=== PATIENT | female | born 1985 ===

== ENCOUNTER 2018-05-04 08:42 | Emergency (ER) | payer SELFPAY ==
[2018-05-04 09:00] VITALS: RESP 18; TEMP 97.6; O2SAT 99; BMI 25.7
[2018-05-04] MEDS ORDERED: POLYETHYLENE GLYCOL 3350 17 GM/Dose PACKET PO STA (09:51)
--- NOTE | 2018-05-04 10:03 | ED PDOC ---
HPI: Abdomen Time Seen by Provider: 05/04/18 09:09 Chief Complaint (Nursing): GI Problem Chief Complaint (Provider): Constipation and abdominal pain History Per: Patient History/Exam Limitations: no limitations Onset/Duration Of Symptoms: Days (x4) Current Symptoms Are (Timing): Still Present Location Of Pain/Discomfort: Other (lower) Associated Symptoms: Constipation. denies: Fever, Chills, Nausea, Vomiting, Diarrhea, Chest Pain, Urinary Symptoms Additional Complaint(s): Heather Real is a 32 year old female, with no significant past medical history, who presents to the emergency department complaining of constipation ongoing for x4 days associated with an intermittent lower abdominal pain. Patient is x24 weeks . Patient reports being able to make bowel movements but only in small amounts. She denies any vaginal bleeding, urinary symptoms, nausea, vomit, chest pain, shortness of breath, weakness, numbness, tingling or other medical complaints. PMD: Butch Hernandez Abnormal Vaginal Bleeding: No Past Medical History Reviewed: Historical Data, Nursing Documentation, Vital Signs Vital Signs: Last Vital Signs Temp 97.6 F 05/04/18 08:59 Pulse 88 05/04/18 08:59 Resp 18 05/04/18 08:59 BP 110/64 05/04/18 08:59 Pulse Ox 99 05/04/18 08:59 - Medical History PMH: No Chronic Diseases - Surgical History Surgical History: No Surg Hx - Family History Family History: States: Unknown Family Hx - Social History Current smoker - smoking cessation education provided: No Alcohol: None Drugs: Denies - Home Medications Home Medications: Ambulatory Orders Medication Instructions Recorded Cephalexin [Keflex] 500 mg PO BID #14 capsule 01/25/18 Polyethylene Glycol 3350 [Miralax] 17 gm PO DAILY PRN 5 Days ml 05/04/18 - Allergies Allergies/Adverse Reactions: Allergies Allergy/AdvReac Type Severity Reaction Status Date / Time No Known Allergies Allergy Verified 02/27/18 07:54 Review of Systems ROS Statement: Except As Marked, All Systems Reviewed And Found Negative Cardiovascular: Negative for: Chest Pain Respiratory: Negative for: Shortness of Breath Gastrointestinal: Positive for: Abdominal Pain, Constipation. Negative for: Nausea, Vomiting, Diarrhea Genitourinary Female: Negative for: Dysuria, Frequency, Incontinence, Vaginal Bleeding Neurological: Negative for: Weakness, Numbness (tingling) Physical Exam - Reviewed Nursing Documentation Reviewed: Yes Vital Signs Reviewed: Yes - Physical Exam Appears: Positive for: No Acute Distress Head Exam: Positive for: ATRAUMATIC, NORMAL INSPECTION, NORMOCEPHALIC Skin: Positive for: Normal Color, Warm, Dry Eye Exam: Positive for: Normal appearance, EOMI, PERRL Neck: Positive for: Normal, Painless ROM Cardiovascular/Chest: Positive for: Regular Rate, Rhythm. Negative for: Murmur Respiratory: Positive for: Normal Breath Sounds. Negative for: Respiratory Distress Gastrointestinal/Abdominal: Positive for: Normal Exam, Soft, Other (gravid abdomen). Negative for: Tenderness, Guarding, Rebound Back: Positive for: Normal Inspection. Negative for: L CVA Tenderness, R CVA Tenderness, Vertebral Tenderness Extremity: Positive for: Normal ROM (upper and lower extremities). Negative for: Deformity Neurologic/Psych: Positive for: Alert, Oriented. Negative for: Motor/Sensory Deficits - ECG O2 Sat by Pulse Oximetry: 99 (RA) Pulse Ox Interpretation: Normal Medical Decision Making Medical Decision Making: Time: 09:09 Initial impression: Constipation, Pelvic pain Initial Plan: --Miralax 17gm PO --Reevaluation 09:35 -Spoke with OB who recommends to give Miralax and sent her [facility] floor for further evaluation. Scribe Attestation: Documented by Brayden Michaels, acting as a scribe for Elpidio Perez MD Provider Scribe Attestation: All medical record entries made by the Scribe were at my direction and personally dictated by me. I have reviewed the chart and agree that the record accurately reflects my personal performance of the history, physical exam, medical decision making, and the department course for this patient. I have also personally directed, reviewed, and agree with the discharge instructions and disposition. Disposition - Clinical Impression Clinical Impression: Pelvic pain, Constipation - Disposition Referrals: Butch Hernandez MD [Primary Care Provider] - Disposition Time: 10:05 Condition: STABLE Additional Instructions: Go to the obgyn floor for further monitoring without fail. Prescriptions: Polyethylene Glycol 3350 [Miralax] 17 gm PO DAILY PRN 5 Days ml PRN Reason: Constipation Instructions: Constipation in Adults
[2018-05-04 17:17] VITALS: BP 110/59; PULSE 75
== END 2018-05-04 12:00 | disposition home or self-care (01) ==
LOC: H.ER 08:42 → H.EROB2 08:42 → SUPCPDRO 08:42 → H.ER 10:45 → H.EROB2 12:00
DX: O26.92 Pregnancy related conditions, unspecified, second trimester (principal); R10.2 Pelvic and perineal pain; K59.00 Constipation, unspecified; Z3A.24 24 weeks gestation of pregnancy

== ENCOUNTER 2018-08-09 12:12 | Emergency (ER) | payer SELFPAY ==
[2018-07-23 10:12] VITALS: BMI 25.7
[2018-08-09 19:48] VITALS: BP 116/74; PULSE 89
--- NOTE | 2018-08-10 09:09 | OBHP ---
Datetime: 08/09/2018 12:00 IP Adm Impression: Term, intrauterine IP Chief Complaint Other: prolonged monitoring from [facility] IP Admit Plan: Observation/Evaluation Admit Comment, IP Provider: 33 y/o female at 38.1 wk GA sent to [facility] from [facility] for prolonged NST monitoring after BPP showed sinusoidal pattern. Patient denies VB, VL, and endorses movement. Has no complaints at this time OB: [facility], Dr. Hernandez Pmhx: denies HomeRx: vitamins Allergies: NKDA SocialHx: denies toxic habits SurgHx: denies FamHx: denies ROS: all systems reviewed and negative except per HPI Physical Exam: Gen: no acute distress Heart: S1S2 present, RRR Lungs: normal breathing pattern, clear to auscultation bilaterally Abd: Gravid, normal bowel sounds, soft, non-tender Extremities: no swelling, tenderness, erythema Assessment and Plan 33 y/o female at 38.1 wk IUP w/ sinusoidal pattern on BPP Prolonged NST, [place] monitoring 2:36PM: patient monitored for 2+ hours: NST reactive, shows moderate variability. No decels. Patient stable for discharge to home w/ instructions to follow up w/ OB ER precautions given Case discussed w/ attending, Dr. Priti Brown, pgyi Extremities - PN: Normal Abdomen - PN: Normal Back - PN: Not Done Breast - PN: Not Done Lungs - PN: Normal Heart - PN: Normal Thyroid - PN: Not Done Neurologic - PN: Not Done HEENT - PN: Not Done General - PN: Normal FHR - Baseline A Provider: 140 Contraction Comments Provider: occasional Gestation - Est Wks by US: 38.1 IP Hx Assessment: The History has been Reviewed and is Current EGA AdmitDate IP: 38.1 Vital Signs Provider: Reviewed IP Chief Complaint: Other NICHD Variability Prov Fetus A: Moderate 6-25bpm NICHD Decel Fetus A IP Provider: None Genitourinary Exam: Normal DTRs - PN: Not Done
== END 2018-08-09 15:30 | disposition home or self-care (01) ==
LOC: H.EROB 12:12 → H.EROB2 12:12 → H.L&D 12:13 → H.EROB2 15:30 → H.L&D 15:30
DX: O76 Abnormality in fetal heart rate and rhythm complicating labor and delivery (principal); Z3A.38 38 weeks gestation of pregnancy

== ENCOUNTER 2018-08-15 09:11 | Inpatient (IN) | payer MEDICAID, SELFPAY ==
[2018-08-15 10:01] VITALS: BMI 28.7
[2018-08-15] MEDS ORDERED: Lactated Ringer's 1,000 ML IV ONE (10:04)
[2018-08-15] MEDS: Lactated Ringer's 1,000 ML IV SCH ×2 (10:35→17:35)
[2018-08-15 11:42] LABS: BASO # 0.1 K/uL (0.0-0.2); BASO % 0.4 % (0.0-2.0); EOS # 0.1 K/uL (0.0-0.7); EOS % 0.5 % (0.0-4.0); HEMOGLOBIN 11.3 g/dL (12.0-16.0); LYMPH # 2.5 K/uL (1.0-4.3); LYMPH % 17.2 % (20.0-40.0); MEAN CELL VOLUME 83.9 fl (81.0-99.0); MEAN CORPUSCULAR HEMOGLOBIN 27.4 pg (27.0-31.0); MEAN CORPUSCULAR HGB CONC 32.6 g/dL (33.0-37.0); MEAN PLATELET VOLUME 8.9 fl (7.2-11.7); MONO % 6.9 % (0.0-10.0); NEUT # 10.9 K/uL (1.8-7.0); NRBC % 0.1 % (0.0-0.0); RBC 4.13 Mil/uL (3.80-5.20); RED CELL DISTRIBUTION WIDTH 14.6 % (11.5-14.5); WHITE BLOOD COUNT 14.6 K/uL (4.8-10.8)
[2018-08-15] MEDS ORDERED: Lidocaine 1% Inj (20ml) ONE (14:04)
[2018-08-15] MEDS ORDERED: Oxytocin 30 UNIT in NS 500 ml 30 UNITS/500 ML BAG IV ONE ×2 (15:56→19:42)
[2018-08-15] MEDS ORDERED: Lactated Ringer's 1,000 ML IV SCH (17:30)
[2018-08-15] MEDS ORDERED: Fentanyl/Bupivacaine HCl 250 ML EPI ONE (17:30)
--- NOTE | 2018-08-15 18:17 | OBHP ---
Datetime: 08/15/2018 16:30 Presentation-Admit: Vertex FHR - Baseline A Provider: 120 Membranes, Provider: Intact Gestation - Est Wks by US: 38.6 Vital Signs Provider: Reviewed; Within Normal Limits NICHD Variability Prov Fetus A: Moderate 6-25bpm NICHD Accel Fetus A IP Provider: 15X15 FHR Category Provider Fetus A: Category I NICHD Decel Fetus A IP Provider: None Dilatation, Provider: 4 Effacement, Provider: 100 Station, Provider: 0 Datetime: 08/15/2018 10:30 IP Adm Impression: Term, intrauterine IP Admit Plan: Admit to unit Admit Comment, IP Provider: HPI: Heather is a 33 year old G1 at 38.6 who presents with complaints o f painful contractions that began approximately 5 hours ago. They are more or less the same in intens ity since they began, denies LOF or vaginal bleeding. Good movement. NENA: 08/23/18 based on 18 weeks US, patient had unsure LMP complications LVEIF seen on US PMH Denies PSH Denies Medications PNV Allergies NKDA Social No tobacco, alcohol or drug use. Patient is originally from [place]. FOB is involved. PHYSICAL EXAM Vitals reviewed labs: A+, antibody neg, GBS negative, HIV/RPR neg, GC/Chlamydia neg, Rubella immune, 1 hr GTT 127 ASSESSMENT/PLAN: 33 year old G1 at 38.3 here in spontaneous labor - Patient is still in latent labor but is fully effaced with a bulging membranes, appropriate for admission - Epidural available - Fetus is vertex by palpation during cervical exam - Anticipate vaginal delivery Plan discussed with attending, Dr. Josafat Hidalgo MD OB Fellow The patient was seen with the resident I agree with the note Abdomen - PN: Normal Lungs - PN: Normal Heart - PN: Normal HEENT - PN: Normal IP Fetus A Comments: FHR hard to evaluate at this time given inconsistent monitoring EGA AdmitDate IP: 38.6 IP Chief Complaint: Uterine contractions Datetime: 08/15/2018 10:00 General - PN: Normal Contraction Comments Provider: Q5 min
--- NOTE | 2018-08-15 18:20 | OBADHP ---
Datetime: 08/15/2018 16:30 Presentation-Admit: Vertex FHR - Baseline A Provider: 120 Membranes, Provider: Intact Gestation - Est Wks by US: 38.6 Vital Signs Provider: Reviewed; Within Normal Limits NICHD Variability Prov Fetus A: Moderate 6-25bpm NICHD Accel Fetus A IP Provider: 15X15 FHR Category Provider Fetus A: Category I NICHD Decel Fetus A IP Provider: None Dilatation, Provider: 4 Effacement, Provider: 100 Station, Provider: 0 Datetime: 08/15/2018 10:30 Admit Comment, IP Provider: HPI: Heather is a 33 year old G1 at 38.6 who presents with complaints o f painful contractions that began approximately 5 hours ago. They are more or less the same in intens ity since they began, denies LOF or vaginal bleeding. Good movement. NENA: 08/23/18 based on 18 weeks US, patient had unsure LMP complications LVEIF seen on US PMH Denies PSH Denies Medications PNV Allergies NKDA Social No tobacco, alcohol or drug use. Patient is originally from [place]. FOB is involved. PHYSICAL EXAM Vitals reviewed labs: A+, antibody neg, GBS negative, HIV/RPR neg, GC/Chlamydia neg, Rubella immune, 1 hr GTT 127 ASSESSMENT/PLAN: 33 year old G1 at 38.3 here in spontaneous labor - Patient is still in latent labor but is fully effaced with a bulging membranes, appropriate for admission - Epidural available - Fetus is vertex by palpation during cervical exam - Anticipate vaginal delivery Plan discussed with attending, Dr. Josafat Hidalgo MD OB Fellow The patient was seen with the resident I agree with the note Abdomen - PN: Normal Lungs - PN: Normal Heart - PN: Normal HEENT - PN: Normal IP Fetus A Comments: FHR hard to evaluate at this time given inconsistent monitoring IP Chief Complaint: Uterine contractions EGA AdmitDate IP: 38.6 IP Adm Impression: Term, intrauterine IP Admit Plan: Admit to unit Datetime: 08/15/2018 10:00 General - PN: Normal Contraction Comments Provider: Q5 min Datetime: 08/09/2018 12:00 IP Chief Complaint Other: prolonged monitoring from [facility] Extremities - PN: Normal Back - PN: Not Done Breast - PN: Not Done Thyroid - PN: Not Done Neurologic - PN: Not Done IP Hx Assessment: The History has been Reviewed and is Current Genitourinary Exam: Normal DTRs - PN: Not Done
[2018-08-15] MEDS ORDERED: OXYTOCIN/0.9 % NS 20 UNIT/1,000 ML BAG IV SCH (19:45)
[2018-08-15] MEDS ORDERED: Benzocaine/Menthol SPRAY TOP PRN (23:53)
[2018-08-15] MEDS ORDERED: Oxycodone/Acetaminophen 5/325 mg Tab PO PRN ×2 (23:53)
--- NOTE | 2018-08-16 02:46 | OBDS ---
DELIVERY PERSONNEL Delivery Doctor: Phil Maurice MD Scrub Nurse: Jaquelin Mccray Repairer: Pat Teague RN Anesthesiologist: Mitchell Pressley MD Resident: Pat Ferraro MD MATERNAL INFORMATION Delivery Anesthesia: Epidural Medications in Delivery: pitocin Placenta Cultured: No Maternal Complications: None Provider Comments: Over an intact perineum, prepped and draped inthe usual sterile fashion, pe rformed. No nuchal cord noted. Anterior shoulder delivered, posterior shoulder and rest of body deliv ered. Umbilical cord was clamped x2 and cut in middle. Pitocin drip started. Vaginal vault inspected, 2nd degree perineal laceratin noted and repaired. Placenta was delivered intact and appeared to have an accesory lobe. Arcelia PGY-2 I was present for the delivery and I agree with the note LABOR SUMMARY EDC: 08/23/2018 00:00 No. Babies in Womb: 1 Attempted: No Labor Anesthesia: Epidural LABOR INFORMATION Reason for Induction: Not Applicable Complete Dilatation: 08/15/2018 22:10 Oxytocin: Augmentation Group B Beta Strep: Negative Antibiotics # of Doses: n/a Antibiotics Time of Last Dose: n/a Steroids Given: None Reason Steroids Not Administered: Not Applicable MEMBRANES Membranes Rupture Method: Artificial Rupture of Membranes: 08/15/2018 16:40 Length of Rupture (hrs): 6.50 Amniotic Fluid Color: Clear Amniotic Fluid Amount: Moderate Amniotic Fluid Odor: Normal STAGES OF LABOR Stage 2 hrs: 1 Stage 2 min: 0 Stage 3 hrs: 0 Stage 3 min: 27 VAGINAL DELIVERY Episiotomy: None Laceration Extension: Second Degree Laceration Type: Perineal Laceration Repair: Yes Initial Vag Sponge Count: 15 Final Vag Sponge Count: 15 Initial Vag Sharps Count: 1 Final Vag Sharps Count: 1 Sponge Count Correct: Yes Sharps Count Correct: Yes BABY A INFORMATION Infant Delivery Date/Time: 08/15/2018 23:10 Method of Delivery: Vaginal Born in Route : No : N/A Forceps: N/A Vacuum Extraction: N/A Shoulder Dystocia : No SHOULDER DYSTOCIA BABY A Delivery Date/Time: 08/15/2018 23:10 PRESENTATION/POSITION BABY A Presentation: Cephalic Cephalic Presentation: Vertex Breech Presentation: N/A PLACENTA INFORMATION BABY A Placenta Delivery Time : 08/15/2018 23:37 Placenta Method of Delivery: Spontaneous Placenta Status: Delivered SCORES BABY A Heart Rate 1 min: >100 bpm Resp Effort 1 min: Good Cry Reflex Irritability 1 min: Cough or Sneeze or Pulls Away Muscle Tone 1 min: Active Motion Color 1 min: Body [place], Extremities Blue Resuscitation Effort 1 min: Tactile Stimulation SCORE 1 MIN: 9 Heart Rate 5 min: >100 bpm Resp Effort 5 min: Good Cry Reflex Irritability 5 min: Cough or Sneeze or Pulls Away Muscle Tone 5 min: Active Motion Color 5 min: Body [place], Extremities Blue Resuscitation Effort 5 min: Tactile Stimulation SCORE 5 MIN: 9 INFANT INFORMATION BABY A Gestational Age at Delivery: 38.6 Gestational Status: Term Outcome : Liveborn Condition : Stable Infant Sex: Female IDENTIFICATION/MEDS BABY A ID Band Number: [id number] ID Band Location: Left Leg; Left Arm WEIGHT/LENGTH BABY A Birthweight (gms): 2925 Infant Weight (lb): 6 Weight (oz): 7 CORD INFORMATION BABY A No. Cord Vessels: 3 Nuchal Cord : N/A Cord Blood Taken: Yes Infant Suction: None ASSESSMENT BABY A Complications: None Physical Findings at Delivery: Caput Succedaneum Infant Respirations: Appears Normal [employer] Called : No Infant Care By: Dorota OMALLEY Transferred To: Remains with Mother
[2018-08-16] MEDS ORDERED: Benzocaine/Menthol SPRAY TOP PRN (06:09)
[2018-08-16] MEDS ORDERED: Oxycodone/Acetaminophen 5/325 mg Tab PO PRN ×2 (06:09)
[2018-08-16 07:03] LABS: BASO % 0.1 % (0.0-2.0); EOS % 0.1 % (0.0-4.0); LYMPH # 2.2 K/uL (1.0-4.3); LYMPH % 10.1 % (20.0-40.0); MEAN CELL VOLUME 84.3 fl (81.0-99.0); MEAN CORPUSCULAR HEMOGLOBIN 27.9 pg (27.0-31.0); MEAN CORPUSCULAR HGB CONC 33.2 g/dL (33.0-37.0); MEAN PLATELET VOLUME 8.6 fl (7.2-11.7); MONO # 1.9 K/uL (0.0-0.8); MONO % 8.7 % (0.0-10.0); NEUT # 17.4 K/uL (1.8-7.0); NRBC % 0.1 % (0.0-0.0); RBC 3.57 Mil/uL (3.80-5.20); RED CELL DISTRIBUTION WIDTH 14.8 % (11.5-14.5); WHITE BLOOD COUNT 21.5 K/uL (4.8-10.8)
--- NOTE | 2018-08-16 09:59 | OBPPN ---
Datetime: 08/16/2018 06:07 PP Pain Prov: Within normal limits PP Nausea Prov: Denies PP Flatus Prov: No PP BM Prov: No PP Heart Prov: Normal PP Lungs Prov: Normal PP Abdomen/Uterus Prov: Normal PP Lochia Prov: Normal PP CVA Tenderness Prov: Normal PP Extremities Prov: Normal PP C/S Incision Prov: Not Applicable PP Progress Prov: Normal PP Impression Prov: Normal progression PP Plan Prov: Continue present management PP Progress Note Prov: 33 y/o F now had a last night. Pt reports feeling well. Pt denies any pain at this moment, is aware that she can ask for pain medications. Lochia is a little more than menses. Pt has started to breastfeed, reports no issues. Pt urinating without difficulties. Pt has n ot tried to ambulate much. Denies passing gasses or BM. Pt afebrile and tolerating PO. Pt denies head ache, chest pain, SOB, abdominal pain, nausea, vomiting or feeling sad or anxious. O: Vital signs reviewed WNL. Post- H/H not available yet. Pre-partun H/H 11.3/34.6 Physical Exam: --GEN: Pt awake and alert, NAD, resting on bed with baby on arms and breast feeding. --HEENT: NC/AT, EOMI, oropharynx with normal moist mucous membranes. --Neck: Normal ROM --CV: S1 and S2 present. --LUNGS: CTAB --ABD: soft, non-tender, fundus at level of umbilicus. --EXT: No calves tenderness, no cyanosis, minimal b/l symmetirc edema. --Psych: Mood is appropiate. A/P: 33 y/o F , on PPD 1, recovering well from . --Doing well. -- and ambulation encouraged. --Pain management as ordered: Ibuprofen and Percocet. --Continue post- management. Case discussed with OB attending nutrition services worker Ary PGY-2. Patient seen and examined this am. Agree with above resident note. Continue Ibuprofen for pain ma nagement and ambulation encouraged. --Dr. Negro IP PP Procedures: None Vital Signs Provider PP: Reviewed
--- NOTE | 2018-08-17 09:26 | OBDCSUM ---
Datetime: 08/17/2018 06:34 Discharged to, Provider: Home Follow up at, Provider: Dr Hernandez-[facility] Disch Instr Activity: Normal activity Disch Instr Diet: Regular Discharge Instructions, Provider: Routine instructions given Discharge Diagnosis, Provider: Term Delivered Discharge Time: 08/17/2018 06:40 Follow up in weeks, Provider: 6 weeks Contraception discussed, Prov: Yes Disch Activity Restrictions: No exercising; No lifting; No sexual activity; Nothing in vagina - Inte rcourse, tampons, douche Discharge Comment, Provider: Discharge Summary DOA: 08/15/2018 EGA: 38.6 wks Diagnosis: S/P on 08/15/18 Summary of : 33 y/o S/P on 08/15/18 L_D summary: Pt is s/p . Pain was well controlled with pain meds. No nausea. Tolerating regula r diet well. Passing flatus, voiding well w/o difficulties. Breast feeding without difficulty. Lochia is similar to menses volume. DOL: 08/15/18 @23:10 NB: Female : 11/26 Weight: 2925 gm Lochia = menses, mild pain, controlled with medications Rubella immune Blood type: A +, Ab neg CBC : 10.0/30.1 Discharge Date: 08/17/2018 Preferred Contraception PP: Mirena IUD Time 10:00 AM Discharge Instructions: -Encourage -Encourage ambulation -Ibuprofen for mild-moderate pain PRN -Senokot-S for constipation -Feosol 325 mg PO daily for anemia -Continue vitamins at home - ED precautions: If excessive bleeding, pain that does not get relief, fever >100.4, palpitations , SOB, CP or other concerning symptom go to the ED. - PT was urged if feeling sad, mood swing, depression, neglect of baby, suicidal thoughts, homicid al thoughts go to ER or call 911 for help - Pt should go to her Primary care doctor if have difficulty with breast feeding - F/U with Dr. Mary HEALY in 4-6 weeks for checkup. Aaron Hernandez, PGY2 OB Hospitalist on-call - pt seen on rounds and agree with PGY1 note MAHNDO Contraception after Delivery: IUD
--- NOTE | 2018-08-17 09:26 | OBPPN ---
Datetime: 08/17/2018 06:23 PP Pain Prov: Within normal limits PP Nausea Prov: Denies PP Flatus Prov: Yes PP BM Prov: No PP Heart Prov: Normal PP Lungs Prov: Normal PP Abdomen/Uterus Prov: Normal PP Lochia Prov: Normal PP Extremities Prov: Normal PP C/S Incision Prov: Not Applicable PP Impression Prov: Normal progression PP Plan Prov: Discharge PP Progress Note Prov: 33 y/o F now had a , on PPD 2. Pt reports feeling well. Pain is con trolled with Ibuprofen. Pt is tolerating PO, no nausea and no vomiting. with no issues. Lochia is less than menses, urinating with no issues, passing gasses but no bowel movement yet. Pt a ble to ambulate. Pt denies headache, chest pain, SOB, anxiety, leg pain. O: Vital signs reviewed WNL. Post- 30.1. Pre-partun H/H 11.3/34.6 Physical Exam: --GEN: Pt awake and alert, NAD. --HEENT: NC/AT, EOMI, oropharynx with normal moist mucous membranes. --Neck: Normal ROM --CV: S1 and S2 present. --LUNGS: CTAB --ABD: soft, non-tender, fundus below umbilicus. --EXT: No calves tenderness, no cyanosis, minimal b/l symmetirc edema. --Psych: Mood is appropiate. A/P: 33 y/o F , on PPD 2, recovering well from . --Doing well. -- and ambulation encouraged. --Discharge today. --Post- appt made for mid September already. Case discussed with OB attending phone screener Ary PGY-2. OB Hospitalist on-call - pt seen on rounds and agree with PGY1 note MAHNDO IP PP Procedures: None Vital Signs Provider PP: Reviewed
[2018-08-17 17:05] VITALS: BP 114/71; PULSE 70; RESP 20; TEMP 97.9; O2SAT 97
== END 2018-08-17 13:00 | disposition home or self-care (01) | DRG 560 ==
LOC: H.EROB2 09:11 → H.L&D 10:04 → H.OB/GYN 08-16 01:15
PROVIDERS: ADMIT Obstetrics & Gynecology Gynecology; ATTEND Obstetrics & Gynecology Gynecology
PROC: 10E0XZZ Delivery of Products of Conception, External Approach (ICD-10-PCS; principal; 2018-08-15)
PROC: 0KQM0ZZ Repair Perineum Muscle, Open Approach (ICD-10-PCS; 2018-08-15)
PROC: 10907ZC Drainage of Amniotic Fluid, Therapeutic from Products of Conception, Via Natural or Artificial Opening (ICD-10-PCS; 2018-08-15)
DX: O70.1 Second degree perineal laceration during delivery (principal); Z37.0 Single live birth; Z3A.38 38 weeks gestation of pregnancy; Z14.8 Genetic carrier of other disease